=== PATIENT | female | born 1985 | race Caucasian/White ===

== ENCOUNTER 2017-04-27 21:37 | Emergency (ER) | payer MEDICAID, SELFPAY ==
[~2017-04-27] VITALS: Ht 175.3 cm; Wt 83.7 kg
[~2017-04-27 21:37] MED LIST: ASPI325T OR; OXYC10TA97 OR; PERC5TAB8 OR; TYLENOL #3 OR; mobic PO
[2017-04-27 23:49] LABS: CONTROL LINE UCG INT CTR LINE PRESENT
[2017-04-28] MEDS ORDERED: FLAG500T PO (00:58)
[2017-04-28] MEDS ORDERED: CIPR-249 PO (00:58)
[2017-04-28] MEDS ORDERED: ACETAMINOPHEN 325 MG TAB PO ONE (01:00)
[2017-04-28] MEDS ORDERED: CIPROFLOXACIN 500 MG TAB PO ONE (01:00)
[2017-04-28] MEDS ORDERED: metroNIDAZOLE (FLAGYL) 500 MG TAB PO ONE (01:00)
[2017-04-28 01:08] VITALS: BP 146/88
== END 2017-04-28 01:17 | disposition home or self-care (01) ==
LOC: M ED 21:37
DX: N30.00 Acute cystitis without hematuria (principal); N76.0 Acute vaginitis; E03.9 Hypothyroidism, unspecified; F17.200 Nicotine dependence, unspecified, uncomplicated

== ENCOUNTER 2017-05-29 11:55 | Emergency (ER) | payer SELFPAY ==
[~2017-05-29] VITALS: Ht 175.3 cm; Wt 81.8 kg
[~2017-05-29 11:55] MED LIST changes: +CIPR-249 PO; +FLAG500T PO
[2017-05-29 13:38] LABS: CONTROL LINE UCG INT CTR LINE PRESENT
[2017-05-29 13:53] VITALS: BP 138/72
[2017-05-29] MEDS ORDERED: FLAG500T PO (13:54)
[2017-05-29] MEDS ORDERED: metroNIDAZOLE (FLAGYL) 500 MG TAB PO ONE (14:00)
[2017-05-29] MEDS ORDERED: DIFL200T PO (14:01)
== END 2017-05-29 14:03 | disposition home or self-care (01) ==
LOC: M ED 11:55
DX: N76.0 Acute vaginitis (principal); F41.9 Anxiety disorder, unspecified; F17.200 Nicotine dependence, unspecified, uncomplicated

== ENCOUNTER → 2017-08-16 | Outpatient (CLI) | payer OTHER ==
[2017-08-16 16:09] LABS: HEMATOCRIT 37.6 % (36.0-47.0); MEAN CORPUSCULAR HGB CONC 34.6 g/dl (32.0-36.5); MEAN CORPUSCULAR VOLUME 89.5 fl (80.0-96.0); PLATELET COUNT, AUTOMATED 217 10^3/uL (150-450); RED CELL DISTRIBUTION WIDTH 12.3 % (11.5-14.5); WHITE BLOOD COUNT 5.7 10^3/uL (4.0-10.0)
[2017-08-16 16:43] LABS: ALBUMIN 4.3 GM/DL (3.2-5.2); ALKALINE PHOSPHATASE 71 U/L (45-117); ALT/SGPT 57 U/L (12-78); ANION GAP 6 MEQ/L (8-16); AST/SGOT 36 U/L (7-37); BILIRUBIN,TOTAL 0.5 MG/DL (0.2-1.0); BLOOD UREA NITROGEN 9 MG/DL (7-18); CARBON DIOXIDE LEVEL 29 MEQ/L (21-32); CHLORIDE LEVEL 103 MEQ/L (98-107); CREATININE FOR GFR 0.59 MG/DL (0.55-1.30); GLOMERULAR FILTRATION RATE > 60.0 (>60); GLUCOSE, FASTING 122 MG/DL (70-100); POTASSIUM SERUM 3.8 MEQ/L (3.5-5.1); SODIUM LEVEL 138 MEQ/L (136-145); TOTAL PROTEIN 8.2 GM/DL (6.4-8.2)
[2017-08-16 17:41] LABS: CHLAMYDIA DNA AMPLIFICATION NEGATIVE (NEGATIVE); GC DNA AMPLIFICATION NEGATIVE (NEGATIVE)
[2017-08-17 11:09] LABS: HEPATITIS B SURFACE ANTIGEN NEGATIVE (NEGATIVE)
[2017-08-17 11:35] LABS: HIV 1&2 SCREEN CENTAUR NEGATIVE (NEGATIVE)
[2017-08-17 11:49] LABS: HEPATITIS C VIRUS ABY INDEX > 11.0 INDEX (<0.8)
== END ==
LOC: M LAB 15:27
DX: F11.20 Opioid dependence, uncomplicated (principal)
CPT/HCPCS: 80053

== ENCOUNTER 2017-10-17 17:12 | Inpatient (IN) | payer OTHER ==
[2017-10-17] MEDS: IBUPROFEN 600 MG TAB PO (18:43)
[2017-10-17] MEDS ORDERED: VANCOMYCIN 1000 MG/20 ML VIAL (J3370) IP (19:45)
[2017-10-17 21:12] LABS: BASO % 0.2 % (0.0-1.0); EOS % 0.2 % (0.0-3.0); HEMATOCRIT 36.1 % (36.0-47.0); HEMOGLOBIN 12.1 g/dl (12.0-15.5); IMMATURE GRANULOCYTE % 0.5 % (0-3.0); LYMPH # 2.1 10^3/uL (1.5-4.5); LYMPH % 16.3 % (24.0-44.0); MEAN CORPUSCULAR HEMOGLOBIN 30.7 pg (27.0-33.0); MEAN CORPUSCULAR HGB CONC 33.5 g/dl (32.0-36.5); MEAN CORPUSCULAR VOLUME 91.6 fl (80.0-96.0); MONO # 0.5 10^3/uL (0.0-0.8); MONO % 3.8 % (0.0-5.0); NEUTROPHILS # 10.3 10^3/uL (1.8-7.7); PLATELET COUNT, AUTOMATED 317 10^3/uL (150-450); RED BLOOD COUNT 3.94 10^6/uL (4.00-5.40); RED CELL DISTRIBUTION WIDTH 12.2 % (11.5-14.5); WHITE BLOOD COUNT 13.1 10^3/uL (4.0-10.0)
[2017-10-17] MEDS: NS 1,000 ML IV (21:23)
[2017-10-17] MEDS: MORPHINE 4 MG/ML 1ML VIAL/SYRINGE (J2270) IV (21:23)
[2017-10-17] MEDS: ONDANSETRON 4MG/2ML VIAL (J2405) IV (21:23)
[2017-10-17 21:29] LABS: ANION GAP 6 MEQ/L (8-16); BLOOD UREA NITROGEN 8 MG/DL (7-18); C REACTIVE PROTEIN QUANTITATIV 6.24 MG/DL (0.00-0.30); CALCIUM LEVEL 8.2 MG/DL (8.5-10.1); CARBON DIOXIDE LEVEL 27 MEQ/L (21-32); CHLORIDE LEVEL 100 MEQ/L (98-107); CREATININE FOR GFR 0.63 MG/DL (0.55-1.30); GLOMERULAR FILTRATION RATE > 60.0 (>60); GLUCOSE, FASTING 134 MG/DL (70-100); POTASSIUM SERUM 3.7 MEQ/L (3.5-5.1); SODIUM LEVEL 133 MEQ/L (136-145)
[2017-10-17 21:32] LABS: LACTIC ACID SEPSIS PROTOCOL 1.6 MMOL/L (0.4-2.0)
[2017-10-17 21:36] LABS: ERYTHROCYTE SEDIMENTATION RATE 74 mm/hr (0-20)
[2017-10-17] MEDS ORDERED: VANCOMYCIN HCL 1,000 MG, VIAL MATE ADAPTER 1 EACH in NS 250 ML IV (22:30)
[2017-10-17] MEDS ORDERED: ONDANSETRON 4MG/2ML VIAL (J2405) IV (23:15)
[2017-10-18] MEDS: ACETAMINOPHEN TAB 650MG DOSE (2X325MG) PO ×3 (00:10→22:24)
[2017-10-18] MEDS: VANCOMYCIN HCL 1,000 MG, VIAL MATE ADAPTER 1 EACH in D5W 250 ML IV ×5 (00:11→23:42)
[2017-10-18] MEDS: NS 1,000 ML IV ×5 (00:11→21:02)
[2017-10-18] MEDS: PIPERACILLIN/TAZOBACTAM SOD 4.5 GM in D5W MINI-BAG PLUS 50 ML IV ×4 (02:34→21:02)
[2017-10-18 06:48] LABS: BASO % 0.3 % (0.0-1.0); EOS % 0.5 % (0.0-3.0); HEMATOCRIT 31.8 % (36.0-47.0); HEMOGLOBIN 10.7 g/dl (12.0-15.5); IMMATURE GRANULOCYTE % 0.4 % (0-3.0); LYMPH # 1.9 10^3/uL (1.5-4.5); LYMPH % 24.9 % (24.0-44.0); MEAN CORPUSCULAR HEMOGLOBIN 30.9 pg (27.0-33.0); MEAN CORPUSCULAR HGB CONC 33.6 g/dl (32.0-36.5); MEAN CORPUSCULAR VOLUME 91.9 fl (80.0-96.0); MONO # 0.7 10^3/uL (0.0-0.8); MONO % 8.8 % (0.0-5.0); NEUTROPHILS % 65.1 % (36.0-66.0); PLATELET COUNT, AUTOMATED 257 10^3/uL (150-450); RED BLOOD COUNT 3.46 10^6/uL (4.00-5.40); RED CELL DISTRIBUTION WIDTH 12.6 % (11.5-14.5); WHITE BLOOD COUNT 7.6 10^3/uL (4.0-10.0)
[2017-10-18 07:04] LABS: ALBUMIN 2.4 GM/DL (3.2-5.2); ALBUMIN/GLOBULIN RATIO 0.51 (1.00-1.93); ALKALINE PHOSPHATASE 70 U/L (45-117); ALT/SGPT 88 U/L (12-78); ANION GAP 4 MEQ/L (8-16); AST/SGOT 56 U/L (7-37); BILIRUBIN,TOTAL 0.4 MG/DL (0.2-1.0); BLOOD UREA NITROGEN 8 MG/DL (7-18); CALCIUM LEVEL 7.8 MG/DL (8.5-10.1); CARBON DIOXIDE LEVEL 29 MEQ/L (21-32); CHLORIDE LEVEL 105 MEQ/L (98-107); CREATININE FOR GFR 0.47 MG/DL (0.55-1.30); GLOMERULAR FILTRATION RATE > 60.0 (>60); GLUCOSE, FASTING 105 MG/DL (70-100); POTASSIUM SERUM 3.3 MEQ/L (3.5-5.1); SODIUM LEVEL 138 MEQ/L (136-145); TOTAL PROTEIN 7.1 GM/DL (6.4-8.2)
[2017-10-18 07:38] LABS: ERYTHROCYTE SEDIMENTATION RATE 62 mm/hr (0-20)
[2017-10-18 08:28] LABS: C REACTIVE PROTEIN QUANTITATIV 6.99 MG/DL (0.00-0.30)
[2017-10-18] MEDS: POTASSIUM CHLORIDE 10 MEQ SR TABLET PO (08:55)
[2017-10-18] MEDS: ENOXAPARIN 40 MG/0.4 ML SYRINGE (J1650) SC (08:57)
[2017-10-18] MEDS: NICOTINE 14 MG/24 HR TRANSDERMAL TD (08:58)
[2017-10-18] MEDS ORDERED: LIDOCAINE 1% MDV 20ML VIAL As Ordered (14:39)
[2017-10-18 19:54] LABS: VANCOMYCIN LEVEL TROUGH 5.7 UG/ML (10.0-20.0)
[2017-10-18] MEDS: PERCOCET 5MG/325MG TAB PO (22:24)
[2017-10-19] MEDS: PIPERACILLIN/TAZOBACTAM SOD 4.5 GM in D5W MINI-BAG PLUS 50 ML IV ×3 (04:25→14:30)
[2017-10-19] MEDS: VANCOMYCIN HCL 1,000 MG, VIAL MATE ADAPTER 1 EACH in D5W 250 ML IV ×4 (04:25→22:26)
[2017-10-19 06:29] LABS: BASO % 0.3 % (0.0-1.0); EOS # 0.1 10^3/uL (0.0-0.50); HEMATOCRIT 34.8 % (36.0-47.0); HEMOGLOBIN 11.6 g/dl (12.0-15.5); IMMATURE GRANULOCYTE % 0.6 % (0-3.0); LYMPH # 1.9 10^3/uL (1.5-4.5); LYMPH % 29.8 % (24.0-44.0); MEAN CORPUSCULAR HEMOGLOBIN 30.9 pg (27.0-33.0); MEAN CORPUSCULAR HGB CONC 33.3 g/dl (32.0-36.5); MEAN CORPUSCULAR VOLUME 92.6 fl (80.0-96.0); MONO # 0.5 10^3/uL (0.0-0.8); NEUTROPHILS # 3.8 10^3/uL (1.8-7.7); NEUTROPHILS % 60.3 % (36.0-66.0); PLATELET COUNT, AUTOMATED 253 10^3/uL (150-450); RED BLOOD COUNT 3.76 10^6/uL (4.00-5.40); RED CELL DISTRIBUTION WIDTH 12.4 % (11.5-14.5); WHITE BLOOD COUNT 6.2 10^3/uL (4.0-10.0)
[2017-10-19 06:48] LABS: ERYTHROCYTE SEDIMENTATION RATE 58 mm/hr (0-20)
[2017-10-19 06:51] LABS: ALBUMIN 2.6 GM/DL (3.2-5.2); ALBUMIN/GLOBULIN RATIO 0.54 (1.00-1.93); ALKALINE PHOSPHATASE 74 U/L (45-117); ALT/SGPT 184 U/L (12-78); ANION GAP 3 MEQ/L (8-16); AST/SGOT 108 U/L (7-37); BILIRUBIN,TOTAL 0.3 MG/DL (0.2-1.0); BLOOD UREA NITROGEN 9 MG/DL (7-18); C REACTIVE PROTEIN QUANTITATIV 6.52 MG/DL (0.00-0.30); CALCIUM LEVEL 8.2 MG/DL (8.5-10.1); CARBON DIOXIDE LEVEL 31 MEQ/L (21-32); CHLORIDE LEVEL 104 MEQ/L (98-107); CREATININE FOR GFR 0.62 MG/DL (0.55-1.30); GLOMERULAR FILTRATION RATE > 60.0 (>60); GLUCOSE, FASTING 129 MG/DL (70-100); POTASSIUM SERUM 3.7 MEQ/L (3.5-5.1); SODIUM LEVEL 138 MEQ/L (136-145); TOTAL PROTEIN 7.4 GM/DL (6.4-8.2)
[2017-10-19] MEDS: ACETAMINOPHEN TAB 650MG DOSE (2X325MG) PO (07:52)
[2017-10-19] MEDS: PERCOCET 5MG/325MG TAB PO ×3 (07:53→23:32)
[2017-10-19 09:19] LABS: HIV 1&2 SCREEN CENTAUR NEGATIVE (NEGATIVE)
[2017-10-19] MEDS: ENOXAPARIN 40 MG/0.4 ML SYRINGE (J1650) SC (09:40)
[2017-10-19] MEDS: NICOTINE 14 MG/24 HR TRANSDERMAL TD (09:40)
[2017-10-19] MEDS: NS 1,000 ML IV (15:58)
[2017-10-19] MEDS: SENOKOT S TAB PO (22:27)
[2017-10-20] MEDS: NS 1,000 ML IV ×3 (03:19→14:30)
[2017-10-20] MEDS: VANCOMYCIN HCL 1,000 MG, VIAL MATE ADAPTER 1 EACH in D5W 250 ML IV ×4 (04:12→21:42)
[2017-10-20 05:06] LABS: BASO % 0.2 % (0.0-1.0); EOS # 0.1 10^3/uL (0.0-0.50); EOS % 0.9 % (0.0-3.0); HEMATOCRIT 31.1 % (36.0-47.0); HEMOGLOBIN 10.4 g/dl (12.0-15.5); IMMATURE GRANULOCYTE % 0.5 % (0-3.0); LYMPH # 2.1 10^3/uL (1.5-4.5); LYMPH % 31.4 % (24.0-44.0); MEAN CORPUSCULAR HEMOGLOBIN 30.3 pg (27.0-33.0); MEAN CORPUSCULAR HGB CONC 33.4 g/dl (32.0-36.5); MEAN CORPUSCULAR VOLUME 90.7 fl (80.0-96.0); MONO # 0.6 10^3/uL (0.0-0.8); MONO % 9.5 % (0.0-5.0); NEUTROPHILS # 3.8 10^3/uL (1.8-7.7); NEUTROPHILS % 57.5 % (36.0-66.0); PLATELET COUNT, AUTOMATED 278 10^3/uL (150-450); RED BLOOD COUNT 3.43 10^6/uL (4.00-5.40); RED CELL DISTRIBUTION WIDTH 12.4 % (11.5-14.5); WHITE BLOOD COUNT 6.6 10^3/uL (4.0-10.0)
[2017-10-20 05:31] LABS: ALBUMIN 2.4 GM/DL (3.2-5.2); ALBUMIN/GLOBULIN RATIO 0.51 (1.00-1.93); ALKALINE PHOSPHATASE 89 U/L (45-117); ALT/SGPT 230 U/L (12-78); ANION GAP 4 MEQ/L (8-16); AST/SGOT 119 U/L (7-37); BILIRUBIN,TOTAL 0.3 MG/DL (0.2-1.0); BLOOD UREA NITROGEN 8 MG/DL (7-18); C REACTIVE PROTEIN QUANTITATIV 3.68 MG/DL (0.00-0.30); CARBON DIOXIDE LEVEL 28 MEQ/L (21-32); CHLORIDE LEVEL 106 MEQ/L (98-107); CREATININE FOR GFR 0.59 MG/DL (0.55-1.30); GLOMERULAR FILTRATION RATE > 60.0 (>60); GLUCOSE, FASTING 134 MG/DL (70-100); POTASSIUM SERUM 3.7 MEQ/L (3.5-5.1); SODIUM LEVEL 138 MEQ/L (136-145); TOTAL PROTEIN 7.1 GM/DL (6.4-8.2)
[2017-10-20 05:57] LABS: ERYTHROCYTE SEDIMENTATION RATE 66 mm/hr (0-20)
[2017-10-20] MEDS: ENOXAPARIN 40 MG/0.4 ML SYRINGE (J1650) SC (08:59)
[2017-10-20] MEDS: NICOTINE 14 MG/24 HR TRANSDERMAL TD (09:00)
[2017-10-20] MEDS: D5W/0.45% SODIUM CHLORIDE 1,000 ML IV (12:30)
[2017-10-20] MEDS: PERCOCET 5MG/325MG TAB PO ×3 (14:12→19:16)
[2017-10-20 14:16] LABS: HEPATITIS C QUANTITATION 298790 IU/mL (.)
[2017-10-20 15:38] LABS: VANCOMYCIN LEVEL TROUGH 12.7 UG/ML (10.0-20.0)
[2017-10-20] MEDS ORDERED: LIDOCAINE 1% MDV 20ML VIAL As Ordered (15:59)
[2017-10-20] MEDS: SENOKOT S TAB PO (19:16)
[2017-10-20] MEDS ORDERED: MOM 30ML SUSPENSION UDC PO (21:45)
[2017-10-21] MEDS: VANCOMYCIN HCL 1,000 MG, VIAL MATE ADAPTER 1 EACH in D5W 250 ML IV ×4 (03:50→21:21)
[2017-10-21] MEDS: D5W/0.45% SODIUM CHLORIDE 1,000 ML IV (05:10)
[2017-10-21 05:28] LABS: BASO % 0.4 % (0.0-1.0); EOS # 0.1 10^3/uL (0.0-0.50); EOS % 1.1 % (0.0-3.0); HEMOGLOBIN 10.9 g/dl (12.0-15.5); IMMATURE GRANULOCYTE % 0.5 % (0-3.0); LYMPH # 1.9 10^3/uL (1.5-4.5); LYMPH % 33.7 % (24.0-44.0); MEAN CORPUSCULAR HEMOGLOBIN 30.4 pg (27.0-33.0); MEAN CORPUSCULAR VOLUME 91.9 fl (80.0-96.0); MONO # 0.6 10^3/uL (0.0-0.8); MONO % 10.9 % (0.0-5.0); NEUTROPHILS % 53.4 % (36.0-66.0); PLATELET COUNT, AUTOMATED 315 10^3/uL (150-450); RED BLOOD COUNT 3.59 10^6/uL (4.00-5.40); RED CELL DISTRIBUTION WIDTH 12.3 % (11.5-14.5); WHITE BLOOD COUNT 5.7 10^3/uL (4.0-10.0)
[2017-10-21 05:49] LABS: ALBUMIN 2.6 GM/DL (3.2-5.2); ALBUMIN/GLOBULIN RATIO 0.49 (1.00-1.93); ALKALINE PHOSPHATASE 104 U/L (45-117); ALT/SGPT 282 U/L (12-78); ANION GAP 5 MEQ/L (8-16); AST/SGOT 124 U/L (7-37); BILIRUBIN,TOTAL 0.2 MG/DL (0.2-1.0); BLOOD UREA NITROGEN 8 MG/DL (7-18); C REACTIVE PROTEIN QUANTITATIV 2.17 MG/DL (0.00-0.30); CALCIUM LEVEL 8.1 MG/DL (8.5-10.1); CARBON DIOXIDE LEVEL 28 MEQ/L (21-32); CHLORIDE LEVEL 107 MEQ/L (98-107); CREATININE FOR GFR 0.63 MG/DL (0.55-1.30); GLOMERULAR FILTRATION RATE > 60.0 (>60); GLUCOSE, FASTING 129 MG/DL (70-100); POTASSIUM SERUM 3.9 MEQ/L (3.5-5.1); SODIUM LEVEL 140 MEQ/L (136-145); TOTAL PROTEIN 7.9 GM/DL (6.4-8.2)
[2017-10-21 07:09] LABS: ERYTHROCYTE SEDIMENTATION RATE 75 mm/hr (0-20)
[2017-10-21] MEDS: ENOXAPARIN 40 MG/0.4 ML SYRINGE (J1650) SC (08:03)
[2017-10-21] MEDS: NICOTINE 14 MG/24 HR TRANSDERMAL TD (08:04)
[2017-10-21] MEDS: PERCOCET 5MG/325MG TAB PO ×4 (08:24→21:22)
[2017-10-21] MEDS ORDERED: CETACAINE SPRAY 5GM As Ordered ×2 (13:34→13:42)
[2017-10-21] MEDS ORDERED: LIDOCAINE VISCOUS 2% SOLN 15ML UDC As Ordered (13:34)
[2017-10-21] MEDS ORDERED: MIDAZOLAM INJ 2 MG/2 ML VIAL (J2250) As Ordered ×5 (13:36→14:31)
[2017-10-21] MEDS: LIDOCAINE VISCOUS 2% SOLN 15ML UDC PO (14:20)
[2017-10-21] MEDS: MIDAZOLAM INJ 2 MG/2 ML VIAL (J2250) IV ×3 (14:23→14:29)
[2017-10-21] MEDS: SODIUM CHLORIDE 0.9% INJ 10 ML SYR IV (17:59)
[2017-10-21] MEDS: SENOKOT S TAB PO (21:22)
[2017-10-22] MEDS: VANCOMYCIN HCL 1,000 MG, VIAL MATE ADAPTER 1 EACH in D5W 250 ML IV ×4 (03:34→21:31)
[2017-10-22] MEDS: PERCOCET 5MG/325MG TAB PO ×4 (03:35→19:08)
[2017-10-22 05:19] LABS: BASO % 0.4 % (0.0-1.0); EOS # 0.1 10^3/uL (0.0-0.50); EOS % 1.3 % (0.0-3.0); HEMATOCRIT 32.2 % (36.0-47.0); HEMOGLOBIN 10.7 g/dl (12.0-15.5); IMMATURE GRANULOCYTE % 0.4 % (0-3.0); LYMPH # 1.8 10^3/uL (1.5-4.5); MEAN CORPUSCULAR HEMOGLOBIN 31.2 pg (27.0-33.0); MEAN CORPUSCULAR HGB CONC 33.2 g/dl (32.0-36.5); MEAN CORPUSCULAR VOLUME 93.9 fl (80.0-96.0); MONO # 0.7 10^3/uL (0.0-0.8); MONO % 11.8 % (0.0-5.0); NEUTROPHILS # 2.9 10^3/uL (1.8-7.7); NEUTROPHILS % 53.1 % (36.0-66.0); PLATELET COUNT, AUTOMATED 285 10^3/uL (150-450); RED BLOOD COUNT 3.43 10^6/uL (4.00-5.40); RED CELL DISTRIBUTION WIDTH 12.3 % (11.5-14.5); WHITE BLOOD COUNT 5.5 10^3/uL (4.0-10.0)
[2017-10-22 05:35] LABS: ALBUMIN 2.6 GM/DL (3.2-5.2); ALBUMIN/GLOBULIN RATIO 0.57 (1.00-1.93); ALKALINE PHOSPHATASE 132 U/L (45-117); ALT/SGPT 260 U/L (12-78); ANION GAP 6 MEQ/L (8-16); AST/SGOT 91 U/L (7-37); BILIRUBIN,TOTAL 0.2 MG/DL (0.2-1.0); BLOOD UREA NITROGEN 7 MG/DL (7-18); C REACTIVE PROTEIN QUANTITATIV 1.32 MG/DL (0.00-0.30); CALCIUM LEVEL 7.8 MG/DL (8.5-10.1); CARBON DIOXIDE LEVEL 30 MEQ/L (21-32); CHLORIDE LEVEL 104 MEQ/L (98-107); CREATININE FOR GFR 0.59 MG/DL (0.55-1.30); GLOMERULAR FILTRATION RATE > 60.0 (>60); GLUCOSE, FASTING 161 MG/DL (70-100); POTASSIUM SERUM 3.6 MEQ/L (3.5-5.1); SODIUM LEVEL 140 MEQ/L (136-145); TOTAL PROTEIN 7.2 GM/DL (6.4-8.2)
[2017-10-22 05:44] LABS: ERYTHROCYTE SEDIMENTATION RATE 69 mm/hr (0-20)
[2017-10-22] MEDS: SODIUM CHLORIDE 0.9% INJ 10 ML SYR IV ×4 (05:49→22:58)
[2017-10-22] MEDS: ENOXAPARIN 40 MG/0.4 ML SYRINGE (J1650) SC (09:05)
[2017-10-22] MEDS: NICOTINE 14 MG/24 HR TRANSDERMAL TD (12:52)
[2017-10-22] MEDS: SENOKOT S TAB PO (21:31)
[2017-10-23] MEDS: PERCOCET 5MG/325MG TAB PO ×5 (01:54→19:17)
[2017-10-23] MEDS: VANCOMYCIN HCL 1,000 MG, VIAL MATE ADAPTER 1 EACH in D5W 250 ML IV ×4 (03:53→21:10)
[2017-10-23 05:35] LABS: BASO % 0.3 % (0.0-1.0); EOS # 0.1 10^3/uL (0.0-0.50); EOS % 0.8 % (0.0-3.0); HEMATOCRIT 33.4 % (36.0-47.0); IMMATURE GRANULOCYTE % 0.5 % (0-3.0); LYMPH # 2.2 10^3/uL (1.5-4.5); LYMPH % 29.9 % (24.0-44.0); MEAN CORPUSCULAR HEMOGLOBIN 30.7 pg (27.0-33.0); MEAN CORPUSCULAR HGB CONC 32.9 g/dl (32.0-36.5); MEAN CORPUSCULAR VOLUME 93.3 fl (80.0-96.0); MONO # 0.9 10^3/uL (0.0-0.8); MONO % 11.6 % (0.0-5.0); NEUTROPHILS # 4.3 10^3/uL (1.8-7.7); NEUTROPHILS % 56.9 % (36.0-66.0); PLATELET COUNT, AUTOMATED 301 10^3/uL (150-450); RED BLOOD COUNT 3.58 10^6/uL (4.00-5.40); RED CELL DISTRIBUTION WIDTH 12.1 % (11.5-14.5); WHITE BLOOD COUNT 7.5 10^3/uL (4.0-10.0)
[2017-10-23 05:59] LABS: ALBUMIN 2.8 GM/DL (3.2-5.2); ALBUMIN/GLOBULIN RATIO 0.56 (1.00-1.93); ALKALINE PHOSPHATASE 143 U/L (45-117); ALT/SGPT 202 U/L (12-78); ANION GAP 3 MEQ/L (8-16); AST/SGOT 47 U/L (7-37); BILIRUBIN,TOTAL 0.2 MG/DL (0.2-1.0); BLOOD UREA NITROGEN 8 MG/DL (7-18); C REACTIVE PROTEIN QUANTITATIV 1.32 MG/DL (0.00-0.30); CALCIUM LEVEL 8.3 MG/DL (8.5-10.1); CARBON DIOXIDE LEVEL 32 MEQ/L (21-32); CHLORIDE LEVEL 104 MEQ/L (98-107); CREATININE FOR GFR 0.63 MG/DL (0.55-1.30); GLOMERULAR FILTRATION RATE > 60.0 (>60); GLUCOSE, FASTING 123 MG/DL (70-100); SODIUM LEVEL 139 MEQ/L (136-145); TOTAL PROTEIN 7.8 GM/DL (6.4-8.2)
[2017-10-23] MEDS: SODIUM CHLORIDE 0.9% INJ 10 ML SYR IV ×4 (06:00→21:11)
[2017-10-23 06:02] LABS: ERYTHROCYTE SEDIMENTATION RATE 64 mm/hr (0-20)
[2017-10-23] MEDS: ENOXAPARIN 40 MG/0.4 ML SYRINGE (J1650) SC (08:46)
[2017-10-23] MEDS: NICOTINE 14 MG/24 HR TRANSDERMAL TD (08:47)
[2017-10-23 09:35] LABS: VANCOMYCIN LEVEL TROUGH 14.5 UG/ML (10.0-20.0)
[2017-10-23] MEDS: SENOKOT S TAB PO (21:10)
[2017-10-23] MEDS ORDERED: diphenhydrAMINE 25 MG CAP PO (22:15)
[2017-10-24] MEDS: PERCOCET 5MG/325MG TAB PO ×5 (02:29→20:05)
[2017-10-24] MEDS: VANCOMYCIN HCL 1,000 MG, VIAL MATE ADAPTER 1 EACH in D5W 250 ML IV ×4 (04:45→21:48)
[2017-10-24] MEDS: SODIUM CHLORIDE 0.9% INJ 10 ML SYR IV ×2 (04:45→17:11)
[2017-10-24 05:25] LABS: BASO % 0.3 % (0.0-1.0); EOS # 0.1 10^3/uL (0.0-0.50); EOS % 0.8 % (0.0-3.0); HEMATOCRIT 35.2 % (36.0-47.0); HEMOGLOBIN 11.7 g/dl (12.0-15.5); IMMATURE GRANULOCYTE % 0.5 % (0-3.0); LYMPH # 1.8 10^3/uL (1.5-4.5); LYMPH % 28.3 % (24.0-44.0); MEAN CORPUSCULAR HEMOGLOBIN 30.8 pg (27.0-33.0); MEAN CORPUSCULAR HGB CONC 33.2 g/dl (32.0-36.5); MEAN CORPUSCULAR VOLUME 92.6 fl (80.0-96.0); MONO # 0.6 10^3/uL (0.0-0.8); MONO % 10.2 % (0.0-5.0); NEUTROPHILS # 3.8 10^3/uL (1.8-7.7); NEUTROPHILS % 59.9 % (36.0-66.0); PLATELET COUNT, AUTOMATED 225 10^3/uL (150-450); RED CELL DISTRIBUTION WIDTH 12.3 % (11.5-14.5); WHITE BLOOD COUNT 6.3 10^3/uL (4.0-10.0)
[2017-10-24 05:45] LABS: ERYTHROCYTE SEDIMENTATION RATE 65 mm/hr (0-20)
[2017-10-24 06:14] LABS: ALBUMIN 2.9 GM/DL (3.2-5.2); ALBUMIN/GLOBULIN RATIO 0.56 (1.00-1.93); ALKALINE PHOSPHATASE 131 U/L (45-117); ALT/SGPT 148 U/L (12-78); ANION GAP 7 MEQ/L (8-16); AST/SGOT 30 U/L (7-37); BILIRUBIN,TOTAL 0.2 MG/DL (0.2-1.0); BLOOD UREA NITROGEN 6 MG/DL (7-18); CALCIUM LEVEL 8.5 MG/DL (8.5-10.1); CARBON DIOXIDE LEVEL 29 MEQ/L (21-32); CHLORIDE LEVEL 104 MEQ/L (98-107); CREATININE FOR GFR 0.59 MG/DL (0.55-1.30); GLOMERULAR FILTRATION RATE > 60.0 (>60); GLUCOSE, FASTING 108 MG/DL (70-100); POTASSIUM SERUM 4.3 MEQ/L (3.5-5.1); SODIUM LEVEL 140 MEQ/L (136-145); TOTAL PROTEIN 8.1 GM/DL (6.4-8.2)
[2017-10-24] MEDS: ENOXAPARIN 40 MG/0.4 ML SYRINGE (J1650) SC (09:09)
[2017-10-24] MEDS: NICOTINE 14 MG/24 HR TRANSDERMAL TD (09:09)
[2017-10-24] MEDS: SENOKOT S TAB PO (20:05)
[2017-10-24] MEDS: traZODone 25MG PER 1/2 TABLET PO (21:48)
[2017-10-25] MEDS: PERCOCET 5MG/325MG TAB PO ×4 (03:54→19:47)
[2017-10-25] MEDS: VANCOMYCIN HCL 1,000 MG, VIAL MATE ADAPTER 1 EACH in D5W 250 ML IV ×4 (03:55→22:04)
[2017-10-25] MEDS: SODIUM CHLORIDE 0.9% INJ 10 ML SYR IV ×2 (05:26→17:45)
[2017-10-25 05:53] LABS: HEMATOCRIT 32.6 % (36.0-47.0); HEMOGLOBIN 10.8 g/dl (12.0-15.5); MEAN CORPUSCULAR HEMOGLOBIN 31.1 pg (27.0-33.0); MEAN CORPUSCULAR HGB CONC 33.1 g/dl (32.0-36.5); MEAN CORPUSCULAR VOLUME 93.9 fl (80.0-96.0); PLATELET COUNT, AUTOMATED 278 10^3/uL (150-450); RED BLOOD COUNT 3.47 10^6/uL (4.00-5.40); RED CELL DISTRIBUTION WIDTH 12.5 % (11.5-14.5); WHITE BLOOD COUNT 6.5 10^3/uL (4.0-10.0)
[2017-10-25 06:20] LABS: ALBUMIN 2.9 GM/DL (3.2-5.2); ALBUMIN/GLOBULIN RATIO 0.57 (1.00-1.93); ALKALINE PHOSPHATASE 118 U/L (45-117); ALT/SGPT 103 U/L (12-78); ANION GAP 5 MEQ/L (8-16); AST/SGOT 19 U/L (7-37); BILIRUBIN,TOTAL 0.2 MG/DL (0.2-1.0); BLOOD UREA NITROGEN 7 MG/DL (7-18); C REACTIVE PROTEIN QUANTITATIV 0.94 MG/DL (0.00-0.30); CALCIUM LEVEL 8.4 MG/DL (8.5-10.1); CARBON DIOXIDE LEVEL 29 MEQ/L (21-32); CHLORIDE LEVEL 103 MEQ/L (98-107); CREATININE FOR GFR 0.73 MG/DL (0.55-1.30); GLOMERULAR FILTRATION RATE > 60.0 (>60); GLUCOSE, FASTING 165 MG/DL (70-100); POTASSIUM SERUM 4.1 MEQ/L (3.5-5.1); SODIUM LEVEL 137 MEQ/L (136-145)
[2017-10-25] MEDS: ENOXAPARIN 40 MG/0.4 ML SYRINGE (J1650) SC (08:23)
[2017-10-25] MEDS: NICOTINE 14 MG/24 HR TRANSDERMAL TD (08:23)
[2017-10-25] MEDS: SENOKOT S TAB PO (22:04)
[2017-10-25] MEDS: traZODone 50 MG TAB PO (22:04)
[2017-10-26] MEDS: PERCOCET 5MG/325MG TAB PO ×4 (00:34→20:13)
[2017-10-26] MEDS: VANCOMYCIN HCL 1,000 MG, VIAL MATE ADAPTER 1 EACH in D5W 250 ML IV ×4 (04:10→21:39)
[2017-10-26] MEDS: SODIUM CHLORIDE 0.9% INJ 10 ML SYR IV ×2 (05:28→17:21)
[2017-10-26] MEDS: NICOTINE 14 MG/24 HR TRANSDERMAL TD (08:20)
[2017-10-26] MEDS: ENOXAPARIN 40 MG/0.4 ML SYRINGE (J1650) SC (08:21)
[2017-10-26] MEDS: SENOKOT S TAB PO (21:39)
[2017-10-26] MEDS: traZODone 50 MG TAB PO (21:39)
[2017-10-26] MEDS: PRAZOSIN 1 MG CAP PO (21:39)
[2017-10-27] MEDS: PERCOCET 5MG/325MG TAB PO ×3 (01:31→18:55)
[2017-10-27] MEDS: VANCOMYCIN HCL 1,000 MG, VIAL MATE ADAPTER 1 EACH in D5W 250 ML IV ×4 (04:01→21:31)
[2017-10-27] MEDS: SODIUM CHLORIDE 0.9% INJ 10 ML SYR IV ×2 (05:22→18:06)
[2017-10-27] MEDS: NICOTINE 14 MG/24 HR TRANSDERMAL TD (09:19)
[2017-10-27] MEDS: ENOXAPARIN 40 MG/0.4 ML SYRINGE (J1650) SC (09:19)
[2017-10-27] MEDS: NICOTINE 21MG/24HR 1 EA TRANSDERMAL TD (10:17)
[2017-10-27] MEDS: ZIPRASIDONE 20MG CAPSULE (GEODON) PO (18:06)
[2017-10-27] MEDS: traZODone 50 MG TAB PO (21:31)
[2017-10-27] MEDS: SENOKOT S TAB PO (21:32)
[2017-10-27] MEDS: PRAZOSIN 1 MG CAP PO (22:35)
[2017-10-28] MEDS: VANCOMYCIN HCL 1,000 MG, VIAL MATE ADAPTER 1 EACH in D5W 250 ML IV ×4 (04:30→18:25)
[2017-10-28] MEDS: PERCOCET 5MG/325MG TAB PO ×3 (04:35→20:13)
[2017-10-28] MEDS: SODIUM CHLORIDE 0.9% INJ 10 ML SYR IV ×2 (05:26→11:27)
[2017-10-28] MEDS: ZIPRASIDONE 20MG CAPSULE (GEODON) PO ×2 (08:03→17:07)
[2017-10-28] MEDS: ENOXAPARIN 40 MG/0.4 ML SYRINGE (J1650) SC (08:03)
[2017-10-28] MEDS: NICOTINE 21MG/24HR 1 EA TRANSDERMAL TD (08:04)
[2017-10-28 08:11] LABS: ALPHA 2-MACROGLOBULIN 193 mg/dL (110-276); ALT 80 IU/L (0-40); APOLIPOPROTEIN A-1 96 mg/dL (116-209); GGT 48 IU/L (0-60); HAPTOGLOBIN 194 mg/dL (34-200); HEPATITIS A IgG TOTAL Negative (Negative); NECROINFLAMM GRADE A1-A2 (.); TOTAL BILIRUBIN 0.2 mg/dL (0.0-1.2)
[2017-10-28 13:18] LABS: HEPATITIS B SURFACE ANTIBODY NEGATIVE (POSITIVE)
[2017-10-28] MEDS: busPIRone 10 MG TAB PO (17:07)
[2017-10-28] MEDS: traZODone 50 MG TAB PO (20:12)
[2017-10-28] MEDS: SENOKOT S TAB PO (20:13)
[2017-10-28] MEDS: PRAZOSIN 1 MG CAP PO (21:57)
[2017-10-29] MEDS: VANCOMYCIN HCL 1,000 MG, VIAL MATE ADAPTER 1 EACH in D5W 250 ML IV ×4 (05:35→19:00)
[2017-10-29] MEDS: SODIUM CHLORIDE 0.9% INJ 10 ML SYR IV ×2 (05:35→17:52)
[2017-10-29] MEDS: PERCOCET 5MG/325MG TAB PO ×3 (05:36→22:01)
[2017-10-29] MEDS: ZIPRASIDONE 20MG CAPSULE (GEODON) PO ×2 (08:47→18:02)
[2017-10-29] MEDS: ENOXAPARIN 40 MG/0.4 ML SYRINGE (J1650) SC (08:47)
[2017-10-29] MEDS: NICOTINE 21MG/24HR 1 EA TRANSDERMAL TD (08:48)
[2017-10-29] MEDS: traZODone 50 MG TAB PO (22:00)
[2017-10-29] MEDS: SENOKOT S TAB PO (22:01)
[2017-10-29] MEDS: PRAZOSIN 1 MG CAP PO (22:02)
[2017-10-30 05:19] LABS: VANCOMYCIN LEVEL TROUGH 13.6 UG/ML (10.0-20.0)
[2017-10-30] MEDS: VANCOMYCIN HCL 1,000 MG, VIAL MATE ADAPTER 1 EACH in D5W 250 ML IV ×4 (05:32→19:22)
[2017-10-30] MEDS: PERCOCET 5MG/325MG TAB PO ×3 (06:05→22:32)
[2017-10-30] MEDS: busPIRone 10 MG TAB PO ×2 (06:26→09:25)
[2017-10-30] MEDS: SODIUM CHLORIDE 0.9% INJ 10 ML SYR IV ×2 (07:27→18:00)
[2017-10-30] MEDS: ZIPRASIDONE 20MG CAPSULE (GEODON) PO ×2 (09:25→18:01)
[2017-10-30] MEDS: ENOXAPARIN 40 MG/0.4 ML SYRINGE (J1650) SC (09:25)
[2017-10-30] MEDS: NICOTINE 21MG/24HR 1 EA TRANSDERMAL TD (09:26)
[2017-10-30] MEDS: SENOKOT S TAB PO (21:53)
[2017-10-30] MEDS: traZODone 50 MG TAB PO (21:53)
[2017-10-30] MEDS: PRAZOSIN 1 MG CAP PO (21:53)
[2017-10-31] MEDS: VANCOMYCIN HCL 1,000 MG, VIAL MATE ADAPTER 1 EACH in D5W 250 ML IV ×4 (05:42→18:37)
[2017-10-31] MEDS: SODIUM CHLORIDE 0.9% INJ 10 ML SYR IV ×2 (05:42→17:32)
[2017-10-31] MEDS: ZIPRASIDONE 20MG CAPSULE (GEODON) PO ×2 (08:25→17:31)
[2017-10-31] MEDS: NICOTINE 21MG/24HR 1 EA TRANSDERMAL TD (08:26)
[2017-10-31] MEDS: ENOXAPARIN 40 MG/0.4 ML SYRINGE (J1650) SC (08:26)
[2017-10-31] MEDS: PERCOCET 5MG/325MG TAB PO ×2 (08:27→17:32)
[2017-10-31] MEDS: traZODone 50 MG TAB PO (20:44)
[2017-10-31] MEDS: PRAZOSIN 1 MG CAP PO (20:44)
[2017-10-31] MEDS: SENOKOT S TAB PO (20:44)
[2017-10-31] MEDS: busPIRone 10 MG TAB PO (23:56)
[2017-11-01] MEDS: PERCOCET 5MG/325MG TAB PO ×3 (01:35→20:04)
[2017-11-01] MEDS: VANCOMYCIN HCL 1,000 MG, VIAL MATE ADAPTER 1 EACH in D5W 250 ML IV ×4 (05:40→19:00)
[2017-11-01] MEDS: SODIUM CHLORIDE 0.9% INJ 10 ML SYR IV ×2 (05:41→17:38)
[2017-11-01] MEDS: ENOXAPARIN 40 MG/0.4 ML SYRINGE (J1650) SC (08:12)
[2017-11-01] MEDS: ZIPRASIDONE 20MG CAPSULE (GEODON) PO ×2 (08:12→17:39)
[2017-11-01] MEDS: NICOTINE 21MG/24HR 1 EA TRANSDERMAL TD (08:13)
[2017-11-01] MEDS: PRAZOSIN 1 MG CAP PO (20:03)
[2017-11-01] MEDS: SENOKOT S TAB PO (20:03)
[2017-11-01] MEDS: traZODone 50 MG TAB PO (21:51)
[2017-11-02] MEDS: PERCOCET 5MG/325MG TAB PO (04:58)
[2017-11-02] MEDS: VANCOMYCIN HCL 1,000 MG, VIAL MATE ADAPTER 1 EACH in D5W 250 ML IV ×2 (05:39→06:42)
[2017-11-02] MEDS: SODIUM CHLORIDE 0.9% INJ 10 ML SYR IV (05:39)
[2017-11-02] MEDS: ZIPRASIDONE 20MG CAPSULE (GEODON) PO (07:45)
[2017-11-02] MEDS: ENOXAPARIN 40 MG/0.4 ML SYRINGE (J1650) SC (07:48)
[2017-11-02] MEDS: NICOTINE 21MG/24HR 1 EA TRANSDERMAL TD (07:48)
== END 2017-11-02 08:39 | disposition home or self-care (01) | DRG 720 ==
LOC: M MS4PR 10-21 17:34 → M MSPAV 10-24 14:53 → M ICU 10-18 18:03 → M ED 17:12 → M ED INP 22:34 → M MS5PR 23:42
PROC: 0H9EXZZ Drainage of Left Lower Arm Skin, External Approach (ICD-10-PCS; principal; 2017-10-21 14:17)
PROC: 02HV33Z Insertion of Infusion Device into Superior Vena Cava, Percutaneous Approach (ICD-10-PCS; 2017-10-21 14:17)
DX: A41.02 Sepsis due to Methicillin resistant Staphylococcus aureus (principal); I76 Septic arterial embolism; I33.9 Acute and subacute endocarditis, unspecified; E87.2 Acidosis; F11.20 Opioid dependence, uncomplicated; F15.20 Other stimulant dependence, uncomplicated; I80.9 Phlebitis and thrombophlebitis of unspecified site; L02.412 Cutaneous abscess of left axilla; L02.414 Cutaneous abscess of left upper limb; F17.200 Nicotine dependence, unspecified, uncomplicated; B18.2 Chronic viral hepatitis C; M06.9 Rheumatoid arthritis, unspecified; Z79.899 Other long term (current) drug therapy; F12.10 Cannabis abuse, uncomplicated; K59.00 Constipation, unspecified; F31.9 Bipolar disorder, unspecified; F43.10 Post-traumatic stress disorder, unspecified; F19.94 Other psychoactive substance use, unspecified with psychoactive substance-induced mood disorder; F60.9 Personality disorder, unspecified

== ENCOUNTER 2017-11-13 17:45 | Emergency (ER) | payer OTHER | END 2017-11-13 19:09 | disposition home or self-care (01) | LOC: M ED 17:45 | DX: L02.213 Cutaneous abscess of chest wall (principal); R51 Headache; F19.10 Other psychoactive substance abuse, uncomplicated; M06.9 Rheumatoid arthritis, unspecified; Z86.19 Personal history of other infectious and parasitic diseases; Z86.14 Personal history of Methicillin resistant Staphylococcus aureus infection; F41.9 Anxiety disorder, unspecified; F32.9 Major depressive disorder, single episode, unspecified; E03.9 Hypothyroidism, unspecified; F43.10 Post-traumatic stress disorder, unspecified; M54.9 Dorsalgia, unspecified; F17.200 Nicotine dependence, unspecified, uncomplicated; Z79.899 Other long term (current) drug therapy | CPT/HCPCS: 99283 ==

== ENCOUNTER → 2017-12-15 | Outpatient (REF) | payer OTHER ==
[2017-12-15 16:17] LABS: BASO % 0.2 % (0.0-1.0); EOS # 0.1 10^3/uL (0.0-0.50); EOS % 0.9 % (0.0-3.0); HEMATOCRIT 35.6 % (36.0-47.0); HEMOGLOBIN 12.3 g/dl (12.0-15.5); IMMATURE GRANULOCYTE % 0.2 % (0-3.0); LYMPH # 3.2 10^3/uL (1.5-4.5); MEAN CORPUSCULAR HGB CONC 34.6 g/dl (32.0-36.5); MEAN CORPUSCULAR VOLUME 89.7 fl (80.0-96.0); MONO # 0.5 10^3/uL (0.0-0.8); MONO % 9.9 % (0.0-5.0); NEUTROPHILS # 1.5 10^3/uL (1.8-7.7); NEUTROPHILS % 28.8 % (36.0-66.0); PLATELET COUNT, AUTOMATED 246 10^3/uL (150-450); RED BLOOD COUNT 3.97 10^6/uL (4.00-5.40); RED CELL DISTRIBUTION WIDTH 12.8 % (11.5-14.5); WHITE BLOOD COUNT 5.3 10^3/uL (4.0-10.0)
[2017-12-15 16:29] LABS: ALBUMIN/GLOBULIN RATIO 0.95 (1.00-1.93); ALKALINE PHOSPHATASE 74 U/L (45-117); ALT/SGPT 53 U/L (12-78); ANION GAP 5 MEQ/L (8-16); AST/SGOT 37 U/L (7-37); BILIRUBIN,TOTAL 0.4 MG/DL (0.2-1.0); BLOOD UREA NITROGEN 9 MG/DL (7-18); C REACTIVE PROTEIN QUANTITATIV < 0.30 MG/DL (0.00-0.30); CARBON DIOXIDE LEVEL 29 MEQ/L (21-32); CHLORIDE LEVEL 107 MEQ/L (98-107); CREATININE FOR GFR 0.65 MG/DL (0.55-1.30); GLOMERULAR FILTRATION RATE > 60.0 (>60); GLUCOSE, FASTING 112 MG/DL (70-100); RHEUMATOID FACTOR QUANT 11.3 IU/ML (<15.0); SODIUM LEVEL 141 MEQ/L (136-145); TOTAL PROTEIN 8.2 GM/DL (6.4-8.2)
[2017-12-15 17:34] LABS: ERYTHROCYTE SEDIMENTATION RATE 36 mm/hr (0-20)
[2017-12-21 00:06] LABS: ANTINUCLEAR ANTIBODIES DIRECT Negative (Negative); HEPATITIS C QUANTITATION HCV Not Detected IU/mL (.)
[2017-12-21 00:06] LABS: CYCLIC CITRULLINATED PEPTIDE 10 units (0-19)
== END ==
LOC: M SFHCPLAZ 13:59
DX: R78.81 Bacteremia (principal); B18.2 Chronic viral hepatitis C; M54.6 Pain in thoracic spine

== ENCOUNTER 2017-12-25 00:05 | Emergency (ER) | payer OTHER ==
[2017-12-25] MEDS ORDERED: ISOVUE-370 76% 100ML VIAL (Q9967) As Ordered (01:58)
[2017-12-25] MEDS ORDERED: KETOROLAC 30 MG/ML VIAL (J1885) IV (02:00)
== END 2017-12-25 02:24 | disposition left against medical advice (07) ==
LOC: M ED 00:05
DX: M54.9 Dorsalgia, unspecified (principal); Z53.21 Procedure and treatment not carried out due to patient leaving prior to being seen by health care provider; R51 Headache; Z86.19 Personal history of other infectious and parasitic diseases; N73.9 Female pelvic inflammatory disease, unspecified; E03.9 Hypothyroidism, unspecified; Z72.0 Tobacco use; F19.10 Other psychoactive substance abuse, uncomplicated; Z79.899 Other long term (current) drug therapy
CPT/HCPCS: 99281

== ENCOUNTER → 2018-04-07 | Outpatient (REF) | payer OTHER ==
[2018-04-07 19:00] LABS: AMORPHOUS SEDIMENT MODERATE (NEGATIVE); BACTERIA, URINE AUTO NEGATIVE (NEGATIVE); MUCUS, URINE MODERATE (NEGATIVE); RBC, URINE AUTO 0 /HPF (0-3); SQUAMOUS EPITHELIAL CELL UR AU 0 /HPF (0-6); WBC, URINE AUTO 0 /HPF (0-3)
[2018-04-07 20:07] LABS: CHLAMYDIA DNA AMPLIFICATION NEGATIVE (NEGATIVE); GC DNA AMPLIFICATION NEGATIVE (NEGATIVE)
== END ==
LOC: M LAB REF 17:32
DX: N76.0 Acute vaginitis (principal)

== ENCOUNTER → 2018-07-16 | Outpatient (REF) | payer BC, OTHER ==
[~2018-07-16] MED LIST changes: +BUSP10TA PO; +DIFL200T PO; +DOXY-350 PO; +GEOD20CA14 PO; +IBUP-1022 PO; +IBUP1TAB6 PO; +IBUP200C25 PO; +SUBO8MIS PO; +TRAZO50TA PO
[2018-07-17 12:19] LABS: CHLAMYDIA DNA AMPLIFICATION NEGATIVE (NEGATIVE); GC DNA AMPLIFICATION NEGATIVE (NEGATIVE)
== END ==
LOC: M LAB REF 09:31
PROVIDERS: ATTEND Physician Assistant
DX: R30.0 Dysuria (principal)

== ENCOUNTER 2019-06-27 12:35 | Emergency (ER) | payer BC, MEDICAID, OTHER, SELFPAY ==
[~2019-06-27] VITALS: Ht 175.3 cm; Wt 89.9 kg
[2019-06-27 12:35] VITALS: BP 149/88
[~2019-06-27 12:35] MED LIST changes: +TRAZ1TAB10 PO; -TRAZO50TA PO
[2019-06-27] MEDS ORDERED: ACETAMINOPHEN 500 MG TAB PO ONE (13:15)
--- NOTE | 2019-06-27 14:12 | REP ---
Four views right fourth and fifth fingers: 06/27/2019. Indication: Pain following injury. Comparison: None. Findings: There is a mildly displaced, obliquely oriented fracture through the most proximal portion of the distal fifth phalanx. No additional fractures are present. The fracture does extend into the articulating surface. The remaining joint spaces are unremarkable. Impression: Mildly displaced fracture through the distal fifth phalanx. Electronically Signed by Chris Walton DO 06/27/2019 02:03 P
== END 2019-06-27 13:53 | disposition home or self-care (01) ==
LOC: M ED 12:35
DX: S62.636A Displaced fracture of distal phalanx of right little finger, initial encounter for closed fracture (principal); W01.198A Fall on same level from slipping, tripping and stumbling with subsequent striking against other object, initial encounter; Y92.099 Unspecified place in other non-institutional residence as the place of occurrence of the external cause; Y93.9 Activity, unspecified; Y99.9 Unspecified external cause status; Z86.19 Personal history of other infectious and parasitic diseases; E03.9 Hypothyroidism, unspecified; F41.9 Anxiety disorder, unspecified; F32.9 Major depressive disorder, single episode, unspecified; F43.10 Post-traumatic stress disorder, unspecified; F19.10 Other psychoactive substance abuse, uncomplicated; F17.200 Nicotine dependence, unspecified, uncomplicated

== ENCOUNTER → 2019-07-09 | Outpatient (REF) | LOC: M LAB 08:53 ==